=== PATIENT | female | born 1955 | race Caucasian/White ===

== ENCOUNTER 2023-05-03 10:19 | Outpatient (CLI) | payer MEDICARE, SELFPAY ==
[2023-05-03 10:51] LABS: Hematocrit 36.1 % (37.0-47.0); Hemoglobin 11.4 g/dL (12.0-15.0)
[2023-05-03 10:57] LABS: Anion Gap 11 mmol/L (8-16); Blood Urea Nitrogen 24 mg/dL (7-17); Calcium 9.1 mg/dL (8.4-10.2); Carbon Dioxide 27 mmol/L (22-30); Chloride 101 mmol/L (98-107); Estimated Glomerular Filt Rate 55; Glucose 89 mg/dL (65-110); Potassium 3.7 mmol/L (3.4-5.0); Sodium 139 mmol/L (137-145)
== END 2023-05-03 10:20 | disposition home or self-care (01) ==
PROVIDERS: Anesthesiology; PCP Family Medicine; Visit Provider Obstetrics & Gynecology
DX: N95.0 Postmenopausal bleeding (principal); Z79.899 Other long term (current) drug therapy; Z01.818 Encounter for other preprocedural examination
CPT/HCPCS: 36415; 80048; 85014; 85018

== ENCOUNTER 2023-05-06 04:01 | Day surgery (SDC) | payer MEDICARE, SELFPAY ==
[2023-04-26 14:39] VITALS: BMI 40.5
--- NOTE | 2023-04-26 14:51 | PC.NURSE ---
PRE-OP- INSTRUCTIONS, PLEASE READ CAREFULLY Report to the Outpatient Waiting Room, entrance under the green pavilion located off [facility], at time _0630_ on date _05/06/23_. Planned Procedure Time: _0830_. Time changes happen often and if your time is changed the preop area will call you the afternoon before. - You and your visitor will be asked to self-screen and do not enter if you have any COVID symptoms. - A mask is optional within the hospital at this time. Patients may have clear liquids (water, carbonated beverages, clear teas, apple juice) until 3 hours prior to surgery (0530 AM) with a maximum of 20 ounces. - No food from midnight until time of surgery Take the following medications with a SIP of water the morning of surgery: _AMLODIPINE, LEVOTHYROXINE_ DO NOT STOP ANY OF YOUR OTHER PRESCRIPTION MEDICATIONS PRIOR TO SURGERY ?EXCEPT THE FOLLOWING Medications to discontinue - _DICLOFENAC PER DR. CLINTON'S INSTRUCTIONS, Date to take last dose_CALL FOR INSTRUCTIONS_ Please no make-up, nail japanese, hairspray, perfume, deodorant, or body powder the day of surgery. No jewelry (including any body piercings) or valuables the day of surgery, leave them at home. Please take a shower or bath the night before, or the morning of, surgery with an antibacterial soap. Wear comfortable, loose fitting clothing. - Jewelry must be removed prior to entering the operating room. Rings and piercings that are not removed may be cut off. - The hospital will not accept responsibility for valuables. - Please leave all valuables, including medications, at home the day of surgery. If you are going home after surgery, a licensed lunch truck driver must drive you home. - NO public transportation without another adult if you receive anesthesia. - We recommend that an adult stay with you for 24 hours following discharge. - We also recommend that you do not drive, make important decision, drink alcoholic beverages, or take any drugs that were not prescribed by your health care provider for at least 24 hours after your discharge time. Follow any additional instructions given to you from your surgeon. If you or anyone in your household have experienced Covid symptoms in the past week, please notify your surgeon or the nurse liaison at the phone number below for possible testing. Telephone instructions given to _PATIENT_and asked if any additional questions and then verbalized understanding. Patient advised to call surgeon office or pre surgery nurse liaison [phone] if any additional questions.
--- NOTE | 2023-05-04 16:38 | PM.IMHP ---
H&P: HPI History of Present Illness Date/Time: 05/04/23 16:38 Chief Complaint: postmenopausal bleeding Narrative: this is a 67-year-old female 2 para 2 who was the been postmenopausal since 2007 who complains of 6 months vaginal bleeding. Apparently she had an ultrasound at [facility] and there was some thickened endometrium. Have been unable to find that result. For ever she did have a Pap smear she has had 1 for some time that I did which showed atypical splint glandular cells of undetermined significance. She is offered hysteroscopy dilatation and curettage. Risks and benefits reviewed including but not exclusive of , aspiration pneumonia, bleeding, transfusion, perforation injury to bowel, bladder, ureters, or other internal organs with need for open laparotomy. She received the ACOG handouts entitled hysteroscopy as well as dilatation curettage respectively. She had all questions answered. She asked to proceed [facility] Social History Social History Smoking status: Never smoker Second hand tobacco smoke exposure: No Alcohol intake: current Alcohol use details: MAYBE 1 DRINK EVERY 6 MONTHS Substance use: never Substance use type: does not use Living arrangements: with family Spiritual care concerns: No Meds Home Medications and Allergies Home Medications Medication Instructions Recorded Confirmed Type allopurinol 100 mg tablet 100 mg DAILY 04/26/23 04/26/23 History amlodipine 10 mg tablet 10 mg DAILY 04/26/23 04/26/23 History diclofenac sodium 75 mg 75 mg PO DAILY PRN Pain 04/26/23 04/26/23 History tablet,delayed release fexofenadine 180 mg tablet 180 mg PO DAILY PRN Congestion 04/26/23 04/26/23 History hydrochlorothiazide 25 mg tablet 25 mg DAILY 04/26/23 04/26/23 History levothyroxine 100 mcg tablet 100 mcg DAILY 04/26/23 04/26/23 History olmesartan 40 mg tablet 40 mg DAILY 04/26/23 04/26/23 History simvastatin 10 mg tablet 10 mg DAILY 04/26/23 04/26/23 History Allergies Allergy/AdvReac Type Severity Reaction Status Date / Time meloxicam AdvReac Nausea Verified 04/26/23 14:34 Penicillins AdvReac Hives Verified 04/26/23 14:34 Exam Const: General: cooperative, healthy appearing, comfortable and overweight Orientation/consciousness: oriented to person, oriented to place and oriented to time HENMT: Head: normal to inspection Resp: Effort & Inspection: normal respiratory effort Cardio: Rate: regular rate Rhythm: regular rhythm Heart sounds: S1 normal heart sound present and S2 normal heart sound present GI: Inspection: normal to inspection and obesity Percussion: Yes normal to percussion Auscultation: normal bowel sounds : External Female Exam: normal external appearance Speculum Exam - Vagina: normal appearance of the vagina Speculum Exam - Cervix: normal appearance of the cervix Bimanual exam- vagina & uterus: enlarged Bimanual Exam- Adnexa, other: normal adnexae Assessment and Plan Assessment and plan (1) Postmenopausal bleeding: Code(s): N95.0 - Postmenopausal bleeding Status: Acute Plan hysteroscopy/ dilatation and curettage
--- NOTE | 2023-05-05 14:40 | WPDANESEPPF ---
Anes - Initial Pre Proc Eval Procedure: Operation Date: 05/06/23 08:30 Proposed Procedures p Hysteroscopy Dilation and Curettage - Troy Anderson MD Date/Time: 05/05/23 14:40 Surgeon: Troy Anderson MD Pre Op Diagnosis: post menopausal bleeding Patient Data Age: 67 Gender: F Height: 1.65 m Weight: 110.45 kg Allergies Allergy/AdvReac Type Severity Reaction Status Date / Time Penicillins Allergy Severe Hives Verified 05/06/23 07:03 meloxicam AdvReac Mild Nausea Verified 05/06/23 07:03 Home Medications Medication Instructions Recorded Confirmed Type allopurinol 100 mg tablet 100 mg DAILY 04/26/23 05/06/23 History amlodipine 10 mg tablet 10 mg DAILY 04/26/23 05/06/23 History diclofenac sodium 75 mg 75 mg PO DAILY PRN Pain 04/26/23 04/26/23 History tablet,delayed release fexofenadine 180 mg tablet 180 mg PO DAILY PRN Congestion 04/26/23 05/06/23 History hydrochlorothiazide 25 mg tablet 25 mg DAILY 04/26/23 05/06/23 History levothyroxine 100 mcg tablet 100 mcg DAILY 04/26/23 05/06/23 History olmesartan 40 mg tablet 40 mg DAILY 04/26/23 05/06/23 History simvastatin 10 mg tablet 10 mg DAILY 04/26/23 05/06/23 History hydrocodone 5 mg-acetaminophen 325 1 tablet PO Q4H PRN pain #10 tabs 05/06/23 Rx mg tablet Patient hx anesthesia problems: none Family hx anesthesia problems: none Results Review: All pre-operative results and documents have been reviewed as part of the pre-operative evaluation. [facility] Past Medical History Medical History (Updated 05/05/23 @ 14:42 by Russ Lin DO) Chronic back pain Hyperlipidemia Hypertension Hypothyroidism Surgical History Surgical History (Updated 05/05/23 @ 14:42 by Russ Lin DO) History of bilateral knee replacement Social History Social History Smoking status: Never smoker Second hand tobacco smoke exposure: No Alcohol intake: current Alcohol use details: MAYBE 1 DRINK EVERY 6 MONTHS Substance use: never Substance use type: does not use Living arrangements: with family Spiritual care concerns: No Anes - Eval Final PreProcedure Day of Procedure 05/05/23 14:40 Patient weight: morbidly obese Heart: regular rate and rhythm Lungs: clear to auscultation Airway: Mallampati scale class II Neurological: alert and oriented Last oral intake: >/= 8 hours ASA classification: III Emergent: no Anesthetic plan: proceed Anesthesia type and monitoring: general GIVS and standard monitoring Results Review: All pre-operative results and documents have been reviewed as part of the pre-operative evaluation. Informed Consent: The patient's anesthetic plan and its attendant risks and benefits were discussed with the patient/family/POA. Questions were solicited and answers provided to the satisfaction of the patient/family/POA.
--- NOTE | 2023-05-06 06:38 | WPDHPUPDATE1 ---
History and Physical Update Update Date/Time: 05/06/23 06:38 History and Physical has been reviewed, including an updated exam of the patient. There are NO changes in the patient's condition. Risks, benefits, and alternatives have been discussed and questions answered. Patient agrees to proceed with procedure.
[2023-05-06 07:03] VITALS: BP 150/57; PULSE 65; RESP 20; TEMP 36.6; O2SAT 98
[2023-05-06] MEDS: ACETAMINOPHEN 500 MG TABLET 1000 MG PO (07:09)
[2023-05-06] MEDS: LACTATED RINGERS 1,000 ML 30 ML IV CONT (07:10)
[2023-05-06] MEDS: LIDOCAINE HCL 1% LOCAL INJ 10 ML VIAL INFILTRATE (08:52)
--- NOTE | 2023-05-06 09:05 | W.PM.PROC2 ---
Procedure Note - Detailed Date of Procedure 05/06/23 Pre-op Diagnosis post menopausal bleeding Post-op Diagnosis Same Procedure Performed Hysteroscopy/polypectomy/dilatation curettage Surgeon Troy Anderson MD Anesthesia MAC and Local Indications A 67-year-old female postmenopausal bleeding and atypical glandular cells of undetermined significance on Pap Findings Thickened irregular polypoid tissue the low consistent with endometrial adenocarcinoma Description of Procedure Patient was prepped draped in normal sterile fashion placed in dorsal lithotomy position. Under excellent IV sedation weighted speculum placed in posterior fornix vagina. Anterior lip of cervix grasped with single-tooth tenaculum. 2.5cc of 1% xylocaine anesthesia placed at 2, 4, 8, 10:00 a.m. of the cervix. Uterus was sounded to 8cm. Serial dilatation with fragmented dilators performed followed by passage of the the Pt hysteroscope using normal saline as visualizing medium. Irregular endometrial tissue and polypoid fashion was noted. The polyp forceps was passed pieces were taken. Uterus scraped over the entire 360? until good grating sound was heard. The instruments were withdrawn. The patient went to recovery in satisfactory condition. All sponge, needle, instrument counts were correct. There were no immediate complications Estimated Blood Loss 5 Drains No Packing No Pathology Yes Complications No immediate complications Condition Stable Disposition PACU
[2023-05-06 09:15] VITALS: BP 114/81; PULSE 61; RESP 14; O2SAT 95
[2023-05-06 10:00] VITALS: BP 147/58; PULSE 46; RESP 16
[2023-05-06] MEDS: oxyCODONE HCL (*CRX) 5 MG TAB IR PO (10:12)
== END 2023-05-06 10:48 | disposition home or self-care (01) ==
PROVIDERS: PCP Family Medicine; Visit Provider Obstetrics & Gynecology
PROC: 0U5B8ZZ Destruction of Endometrium, Via Natural or Artificial Opening Endoscopic (ICD-10-PCS; CPT 58563; principal; 2023-05-06 08:30)
DX: N85.02 Endometrial intraepithelial neoplasia [EIN] (principal); N95.0 Postmenopausal bleeding; I10 Essential (primary) hypertension; E78.5 Hyperlipidemia, unspecified; E03.9 Hypothyroidism, unspecified; M54.9 Dorsalgia, unspecified; G89.29 Other chronic pain; Z79.891 Long term (current) use of opiate analgesic; E66.01 Morbid (severe) obesity due to excess calories; Z68.41 Body mass index [BMI] 40.0-44.9, adult
CPT/HCPCS: 58558; 36415; 80048; 85014; 85018; 88305; 88342; A9270; J1100; J2250; J2405; J2704; J3010; J7120

== ENCOUNTER 2023-05-24 13:05 | Outpatient (CLI) | payer MEDICARE, SELFPAY ==
--- NOTE | 2023-05-24 13:14 | ECG_ITS ---
Measurements Intervals [place] Rate: 71 P: 55 WI: 195 QRS: 12 QRSD: 81 T: 26 QT: 383 QTc: 419 Interpretive Statements SINUS RHYTHM LOW QRS VOLTAGE IN PRECORDIAL LEADS ANTEROSEPTAL INFARCT, AGE INDETERMINATE BASELINE ARTIFACT- I, II, III, AVR, AVL, AVF ABNORMAL ECG NO PREVIOUS ECG AVAILABLE FOR COMPARISON Electronically Signed On 05-24-2023 14:26:25 CDT by Tres Coburn D.O.
[2023-05-24 13:51] LABS: Basophils Percent Auto 0.3 % (0.2-1.2); Eosinophils Absolute Auto 0.2 K/mm3 (0-0.3); Eosinophils Percent Auto 3.7 % (0-4.4); Hematocrit 33.5 % (37.0-47.0); Hemoglobin 10.9 g/dL (12.0-15.0); Immature Granulocyte Absolute 0.01 K/mm3 (0.00-0.031); Immature Granulocyte Percent A 0.2 % (0-0.5); Lymphocytes Absolute Auto 0.76 K/mm3 (0.9-3.2); Lymphocytes Percent Auto 12.7 % (18.3-44.2); Mean Corpuscular HGB Conc 32.5 g/dl (32-36); Mean Corpuscular Hemoglobin 28.9 pg (26-34); Mean Corpuscular Volume 88.9 fl (80-100); Mean Platelet Volume 10.6 fl (7.4-10.4); Monocytes Absolute Auto 0.4 K/mm3 (0.1-0.6); Monocytes Percent Auto 6.8 % (2.6-8.5); Neutrophils Absolute Auto 4.6 K/mm3 (1.3-6.7); Neutrophils Percent Auto 76.3 % (45.5-73.1); Platelet Count Result 187 k/mm3 (150-375); Red Blood Count 3.77 M/mm3 (4.2-5.4); Red Cell Distribution Width 12.6 % (11.5-14.5)
== END 2023-05-24 13:06 | disposition home or self-care (01) ==
LOC: ANHSURGERY 13:09
PROVIDERS: PCP Family Medicine; Visit Provider Obstetrics & Gynecology
DX: N95.0 Postmenopausal bleeding (principal); I10 Essential (primary) hypertension; Z01.818 Encounter for other preprocedural examination
CPT/HCPCS: 36415; 85025; 86850; 86900; 86901; 93005

== ENCOUNTER 2023-05-26 00:49 | Day surgery (SDC) | payer MEDICARE, SELFPAY ==
[2023-05-20 11:19] VITALS: BMI 39.9
--- NOTE | 2023-05-20 11:33 | PC.NURSE ---
PRE-OP INSTRUCTIONS, PLEASE READ CAREFULLY Report to the Outpatient Waiting Room, entrance under the green pavilion located off [facility], at time _1200_ on date _05/26/23_. Planned Procedure Time: _2 PM_. PACK A SMALL OVERNIGHT BAG AND LEAVE IN THE CAR Time changes happen often and if your time is changed the preop area will call you the afternoon before. - You and your visitor will be asked to self-screen and do not enter if you have any COVID symptoms. - A mask is optional within the hospital at this time. -VISITING HOURS 8AM-8PM Patients may have clear liquids (water, carbonated beverages, clear teas, apple juice) until 3 hours prior to surgery (1100 AM) with a maximum of 20 ounces. - No food from midnight until time of surgery Take the following medications with a SIP of water the morning of surgery: _AMLODIPINE, LEVOTHYROXINE_ DO NOT STOP ANY OF YOUR OTHER PRESCRIPTION MEDICATIONS PRIOR TO SURGERY ?EXCEPT THE FOLLOWING Medications to discontinue _DICLOFENAC PER DR. AUDELIA KLEIN'S INSTRUCTIONS_, Date to take last dose Please no make-up, nail albanian, hairspray, perfume, deodorant, or body powder the day of surgery. No jewelry (including any body piercings) or valuables the day of surgery, leave them at home. Please take a shower or bath the night before, or the morning of, surgery with an antibacterial soap. Wear comfortable, loose fitting clothing. - Jewelry must be removed prior to entering the operating room. Rings and piercings that are not removed may be cut off. - The hospital will not accept responsibility for valuables. - Please leave all valuables, including medications, at home the day of surgery. If you are going home after surgery, a licensed bulk delivery driver must drive you home. - NO public transportation without another adult if you receive anesthesia. - We recommend that an adult stay with you for 24 hours following discharge. - We also recommend that you do not drive, make important decision, drink alcoholic beverages, or take any drugs that were not prescribed by your health care provider for at least 24 hours after your discharge time. Follow any additional instructions given to you from your surgeon. If you or anyone in your household have experienced Covid symptoms in the past week, please notify your surgeon or the nurse liaison at the phone number below for possible testing. Telephone instructions given to _PATIENT_and asked if any additional questions and then verbalized understanding. Patient advised to call surgeon office or pre surgery nurse liaison [phone] if any additional questions.
--- NOTE | 2023-05-23 11:31 | PM.IMHP ---
H&P: HPI History of Present Illness Date/Time: 05/23/23 11:31 Chief Complaint: Postmenopausal bleeding with atypical hyperplasia Narrative: A 67-year-old female admitted for robotic total vaginal hysterectomy and bilateral salpingo-oophorectomy secondary to atypical endometrial hyperplasia. Risks and benefits reviewed in full details. She had all questions answered. She received the ACOG handouts entitled hysterectomy as well as the [place] handout. She asked to proceed [facility] Past Medical History Medical History Chronic back pain Hyperlipidemia Hypertension Hypothyroidism Surgical History Surgical History History of bilateral knee replacement Social History Social History Smoking status: Never smoker Second hand tobacco smoke exposure: Yes Alcohol intake: current Alcohol use details: MAYBE 1 EVERY 6 MONTHS Substance use: never Substance use type: does not use Living arrangements: with family Spiritual care concerns: No Meds Home Medications and Allergies Home Medications Medication Instructions Recorded Confirmed Type allopurinol 100 mg tablet 100 mg DAILY 04/26/23 05/20/23 History amlodipine 10 mg tablet 10 mg DAILY 04/26/23 05/20/23 History diclofenac sodium 75 mg 75 mg PO DAILY PRN Pain 04/26/23 05/20/23 History tablet,delayed release fexofenadine 180 mg tablet 180 mg PO DAILY PRN Congestion 04/26/23 05/20/23 History hydrochlorothiazide 25 mg tablet 25 mg DAILY 04/26/23 05/20/23 History levothyroxine 100 mcg tablet 100 mcg DAILY 04/26/23 05/20/23 History olmesartan 40 mg tablet 40 mg DAILY 04/26/23 05/20/23 History simvastatin 10 mg tablet 10 mg DAILY 04/26/23 05/20/23 History Allergies Allergy/AdvReac Type Severity Reaction Status Date / Time Penicillins Allergy Severe Hives Verified 05/20/23 11:19 meloxicam AdvReac Mild Nausea Verified 05/20/23 11:19 Exam Const: General: cooperative, healthy appearing and comfortable Nutritional Appearance: overweight Orientation/consciousness: oriented to person, oriented to place and oriented to time HENMT: Head: normal to inspection Resp: Effort & Inspection: normal respiratory effort Cardio: Rate: regular rate Rhythm: regular rhythm Heart sounds: S1 normal heart sound present and S2 normal heart sound present GI: Inspection: normal to inspection : Speculum Exam - Vagina: normal appearance of the vagina Speculum Exam - Cervix: normal appearance of the cervix Bimanual exam- vagina & uterus: enlarged Bimanual Exam- Adnexa, other: normal adnexae Assessment and Plan Assessment and plan (1) Postmenopausal bleeding: Code(s): N95.0 - Postmenopausal bleeding Status: Acute (2) Atypical endometrial hyperplasia: Code(s): N85.02 - Endometrial intraepithelial neoplasia [EIN] Status: Acute Plan Robotic total vaginal hysterectomy and bilateral salpingo-oophorectomy
[2023-05-26] VITALS (10 sets, daily range): BP systolic 124–158; BP diastolic 54–76; PULSE 53–73; RESP 12–18; TEMP 36.1–36.7; O2SAT 91–97
--- NOTE | 2023-05-26 06:37 | WPDHPUPDATE1 ---
History and Physical Update Update Date/Time: 05/26/23 06:37 History and Physical has been reviewed, including an updated exam of the patient. There are NO changes in the patient's condition. Risks, benefits, and alternatives have been discussed and questions answered. Patient agrees to proceed with procedure.
[2023-05-26] MEDS: LACTATED RINGERS 1,000 ML 30 ML IV CONT ×2 (12:24→15:44)
[2023-05-26] MEDS: ACETAMINOPHEN 500 MG TABLET 1000 MG PO (12:25)
[2023-05-26] MEDS: KETOROLAC 15 MG/ML VIAL (*BKC) IV PUSH (12:25)
--- NOTE | 2023-05-26 12:46 | WPDANESEPPF ---
Anes - Initial Pre Proc Eval Procedure: Operation Date: 05/26/23 14:00 Proposed Procedures p Robotic Assisted Total Vaginal Hysterectomy with Bilateral Salpingo-oophorectomy - Troy Anderson MD Date/Time: 05/26/23 12:46 Surgeon: Troy Anderson MD Pre Op Diagnosis: Post Menopausal Bleed, Endometrial Hyperplasia Patient Data Age: 67 Gender: F Height: 1.65 m Weight: 109 kg Allergies Allergy/AdvReac Type Severity Reaction Status Date / Time Penicillins Allergy Severe Hives Verified 05/20/23 11:19 meloxicam AdvReac Mild Nausea Verified 05/20/23 11:19 Home Medications Medication Instructions Recorded Confirmed Type allopurinol 100 mg tablet 100 mg DAILY 04/26/23 05/20/23 History amlodipine 10 mg tablet 10 mg DAILY 04/26/23 05/20/23 History diclofenac sodium 75 mg 75 mg PO DAILY PRN Pain 04/26/23 05/20/23 History tablet,delayed release fexofenadine 180 mg tablet 180 mg PO DAILY PRN Congestion 04/26/23 05/20/23 History hydrochlorothiazide 25 mg tablet 25 mg DAILY 04/26/23 05/20/23 History levothyroxine 100 mcg tablet 100 mcg DAILY 04/26/23 05/20/23 History olmesartan 40 mg tablet 40 mg DAILY 04/26/23 05/20/23 History simvastatin 10 mg tablet 10 mg DAILY 04/26/23 05/20/23 History hydrocodone 5 mg-acetaminophen 325 1 tablet PO Q4H PRN pain #20 tabs 05/26/23 Rx mg tablet Patient hx anesthesia problems: none Family hx anesthesia problems: none Results Review: All pre-operative results and documents have been reviewed as part of the pre-operative evaluation. [facility] Past Medical History Medical History (Updated 05/26/23 @ 12:47 by Troy Cabezas MD) Chronic back pain Hyperlipidemia Hypertension Hypothyroidism Morbid obesity Surgical History Surgical History History of bilateral knee replacement Social History Social History Smoking status: Never smoker Second hand tobacco smoke exposure: Yes Alcohol intake: current Alcohol use details: MAYBE 1 EVERY 6 MONTHS Substance use: never Substance use type: does not use Living arrangements: with family Spiritual care concerns: No Anes - Eval Final PreProcedure Day of Procedure 05/26/23 12:46 Patient weight: morbidly obese Heart: regular rate and rhythm Lungs: clear to auscultation Airway: Mallampati scale class II Neurological: alert and oriented Last oral intake: >/= 8 hours ASA classification: III Emergent: no Anesthetic plan: proceed Anesthesia type and monitoring: general ETT and standard monitoring Results Review: All pre-operative results and documents have been reviewed as part of the pre-operative evaluation. Informed Consent: The patient's anesthetic plan and its attendant risks and benefits were discussed with the patient/family/POA. Questions were solicited and answers provided to the satisfaction of the patient/family/POA.
[2023-05-26] MEDS: ceFAZolin 2 GM/D5W 50 ML 2 GM/50 ML BAG IVPB (13:48)
--- NOTE | 2023-05-26 15:04 | W.PM.PROC2 ---
Procedure Note - Detailed Date of Procedure 05/26/23 Pre-op Diagnosis Post Menopausal Bleed, Endometrial Hyperplasia Post-op Diagnosis Other (Suspected endometrial cancer) Procedure Performed Robotic total vaginal hysterectomy bilateral salpingo-oophorectomy Surgeon Troy Anderson MD Anesthesia General Indications Say 67-year-old female with complex atypical hyperplasia D and C specimen Findings Multiple diverticuli were seen with the colon attached to the back of the uterus. After releasing the adhesions a exophytic cancer appeared to be present through the uterus. Because it was difficult bleeding present on the uterus did not look like it could be controlled we proceeded with hysterectomy. Description of Procedure Patient was prepped draped in normal sterile fashion placed in dorsal lithotomy position. Under excellent general trach anesthesia weighted speculum placed posterior vagina. Anterior lip of cervix grasped with single-tooth tenaculum. Uterus sounded to 9cm. Serial dilatation with fragmented dilators performed followed passes the 8. TARYN and the 3. 0.5 cold cup. Next the 16 [place] catheter placed in bladder drained clear urine. The weighted speculum was removed and gloves were changed. A supraumbilical incision made the Veress needle passed in the abdomen. Abdomen filled with CO2 gas 15 was mercury. The 8mm trocar advanced under direct visualization assuring injury. Patient placed in Trendelenburg and right left lateral quadrant incisions 8mm trocars advanced under direct visualization right upper quadrant incision made the 8mm trocar advanced under direct visualization assuring injury injury. The robot was docked. Attention was turned to community health counselor. The colon was noted to be markedly adherent to the back of the uterus and multiple diverticuli were seen. Using gentle dissection this was peeled off. At the point that it peeled off easily the uterus began bleeding. It appeared at that point that this was an exophytic cancer through and through the uterus however the bleeding was actively occurring on uterus. At that point was not felt safe to abandon the procedure so we proceeded with the hysterectomy portion. The left round ligament was grasped, burned, cut and anterior bladder flap was formed sharply dissected across the anterior portion of the uterus and cervix reflecting bladder caudally the away from the uterus and cervix to the opposite round ligament. The left infundibulopelvic structure was skeletonized remove the left ovary and tube clamped, burned, cut and brought to level of the previously cut round ligament. Removing right ovary and tube the infundibulopelvic structure was skeletonized clamping burning cutting a brain this level of previously cut round ligament. The cardinal broad ligaments were on the left were clamped, burned, cut again cervix and uterus until the uterine vessels could be seen on the left these were individually clamped, burned, cut. In like fashion the cardinal broad ligaments were serially skeletonized clamping burning cutting down the lateral edge of the uterus and cervix which repeat 4 free of any tumors well. The uterine cancer in the uterine vessels were noted were clamped, burned, cut. Blanching of the uterus was noted at that point. The colpotomy incision was made in the cervix uterus ovaries and tubes removed through the vagina. Irrigation undertaken until completely clear and hemostasis was assured the vagina closed with continuous running 0V lock from lateral edge to lateral edge back to midline. Hearing irrigation undertaken again until clear and hemostasis was assured the robot was undocked gas removed from the abdomen. The incisions closed with 4 Monocryl and glue after gas was removed trocars removed. Patient was awakened recovery in satisfactory condition. All sponge, needle, instrument counts were correct. There were no immediate complications Estimated Blood Loss 50 Drains
[2023-05-26] MEDS: ONDANSETRON INJ 4 MG/2 ML VIAL IV PUSH (16:07)
[2023-05-26] MEDS: fentaNYL CITRATE INJ (*CRX) 100 MCG/2 ML VIAL 25 MCG IV PUSH ×2 (16:14→16:17)
--- NOTE | 2023-05-26 16:32 | SUR.PHASEI ---
Dr. Dinora Anderson pagejamie for decreased urine output.
[2023-05-26] MEDS: FUROSEMIDE INJ 40 MG/4 ML VIAL 20 MG IV PUSH (16:45)
[2023-05-26] MEDS: SODIUM CHLORIDE 0.9% IV 500 ML 999 ML IV CONT (16:50)
[2023-05-26] MEDS: KETOROLAC 30 MG/ML VIAL (*BKC) IV PUSH (18:02)
[2023-05-26] MEDS: DEXTROSE 5%/LACTATED RINGERS 1,000 ML 125 ML IV CONT (18:02)
--- NOTE | 2023-05-26 18:39 | ADMGEN ---
1723-This patient, Madai Bolivar, was admitted to OB 2nd Floor Room 284-00. Patient/family oriented to hospital policies and general routines including ID bracelet, bed and alarms, visiting hours, pain management, procedures, bathroom and other care routines, personal items, smoking policy, room service/diet, and visiting hours. Information on how to activate the Rapid Response Team has been discussed. Patient/Family are encouraged to report perceived risks to care and to ask questions if they do not understand what they are told or what they should do.
[2023-05-26] MEDS: HYDROcodone/acetaminophen (*CRX) 5-325 MG TABLET 1 TAB PO (20:25)
[2023-05-26] MEDS: SCOPOLAMINE 1.5 MG PATCH TRANSDERM (20:25)
[2023-05-27 04:45] VITALS: BP 159/72; PULSE 64; RESP 16; TEMP 37.5; O2SAT 96
[2023-05-27] MEDS: HYDROcodone/acetaminophen (*CRX) 5-325 MG TABLET 1 TAB PO (05:12)
[2023-05-27] MEDS: IBUPROFEN 600 MG TABLET PO (05:12)
[2023-05-27 05:15] LABS: Hematocrit 32.2 % (37.0-47.0); Hemoglobin 10.5 g/dL (12.0-15.0); Immature Granulocyte Absolute 0.03 K/mm3 (0.00-0.031); Immature Granulocyte Percent A 0.3 % (0-0.5); Lymphocytes Absolute Auto 0.41 K/mm3 (0.9-3.2); Lymphocytes Percent Auto 4.1 % (18.3-44.2); Mean Corpuscular HGB Conc 32.6 g/dl (32-36); Mean Corpuscular Hemoglobin 29.1 pg (26-34); Mean Corpuscular Volume 89.2 fl (80-100); Mean Platelet Volume 10.4 fl (7.4-10.4); Monocytes Absolute Auto 0.4 K/mm3 (0.1-0.6); Monocytes Percent Auto 3.8 % (2.6-8.5); Neutrophils Absolute Auto 9.2 K/mm3 (1.3-6.7); Neutrophils Percent Auto 91.8 % (45.5-73.1); Platelet Count Result 191 k/mm3 (150-375); Red Blood Count 3.61 M/mm3 (4.2-5.4); Red Cell Distribution Width 12.7 % (11.5-14.5)
--- NOTE | 2023-05-27 06:36 | P.DS_ITS ---
DS: Admitting Diagnosis Discharge Date 05/27/2023 Admitting Diagnosis endometrial hyperplasia DS: Discharge Diagnosis Discharge Diagnosis (1) Postmenopausal bleeding: Code(s): N95.0 - Postmenopausal bleeding Status: Acute (2) Uterine cancer: Code(s): C55 - Malignant neoplasm of uterus, part unspecified Status: Acute DS: Summary Hospital Course Reason for hospitalization: patient was admitted for robotic hysterectomy and bilateral salpingo- oophorectomy secondary to atypical endometrial hyperplasia Hospital Course: patient underwent hysterectomy bilateral salpingo-oophorectomy robotically on 05/27/2023. Unfortunately it appeared that it was a endometrial cancer. The procedure itself was unremarkable. She remained afebrile. She was up, eating regular diet, ambulating, voiding difficulty, generally without complaints. Time Spent with Patient Time attestation: Total time spent providing and/or coordinating discharge services: Exam Const: General: cooperative, healthy appearing and comfortable Orientation/consciousness: oriented to person, oriented to place and oriented to time Resp: Effort & Inspection: normal respiratory effort Cardio: Rate: regular rate Rhythm: regular rhythm Heart sounds: S1 normal heart sound present and S2 normal heart sound present GI: Inspection: normal to inspection and incision ( Wounds are clean dry and intact) Auscultation: normal bowel sounds DS: Data Data Completed and Pending Pending studies at discharge: Pending at discharge 05/26/23 14:50 Surgical [PTH] Routine Labs on day of discharge: Labs from last 24 hours 05/27/23 04:53 WBC 10.0 RBC 3.61 L Hgb 10.5 L Hct 32.2 L MCV 89.2 MCH 29.1 MCHC 32.6 RDW 12.7 Plt Count 191 MPV 10.4 Immature Gran % (Auto) 0.3 Neut % (Auto) 91.8 H Lymph % (Auto) 4.1 L [place] % (Auto) 3.8 Eos % (Auto) 0.0 Baso % (Auto) 0.0 L Lymph # (Auto) 0.41 L [place] # (Auto) 0.4 Eos # (Auto) 0.0 Baso # (Auto) 0.0 Abs Immat Gran (auto) 0.03 Absolute Neuts (auto) 9.2 H Absolute Nucleated RBC 0.0 Nucleated RBC % 0.0 Discharge Plan Discharge Patient Disposition: Home, Self-Care Stand Alone Forms: General Discharge Instructions Follow-up/Referrals: Troy Francois MD [Physician] - Discharge Medications: New hydrocodone-acetaminophen 5-325 mg tablet 1 tablet PO Q4H PRN (Reason: pain) Qty: 20 0RF No Action simvastatin 10 mg tablet 10 mg DAILY fexofenadine 180 mg Tablet 180 mg PO DAILY PRN (Reason: Congestion) allopurinol 100 mg tablet 100 mg DAILY levothyroxine 100 mcg tablet 100 mcg DAILY amlodipine 10 mg tablet 10 mg DAILY diclofenac sodium 75 mg tablet,delayed release (DR/EC) 75 mg PO DAILY PRN (Reason: Pain) hydrochlorothiazide 25 mg tablet 25 mg DAILY olmesartan 40 mg tablet 40 mg DAILY
--- NOTE | 2023-05-27 06:39 | PM.GYNPNOP ---
THERMAL ENGINEER - A/P Postoperative Procedures: Procedures Operation Date: 05/26/23 14:00 Actual Procedure Side Surgeon p Robotic Assisted Total Vaginal Hysterectomy with Bilateral Salpingo-oophorectomy Bilateral Troy Anderson MD Postoperative day: 1 Postoperative status: doing well Postoperative plan: routine post-op care, ambulate, advance diet, voiding trials and discharge Time Spent With Patient Time: Total time spent is greater than 50% in coordination of care (as documented) at patient's floor/unit and/or counseling patient: Time with patient: less than 15 minutes THERMAL ENGINEER- PN:Subj Post-Op Subjective Date/time seen: 05/27/23 06:39 Subjective: patient has no complaints, patient desires discharge and pain is well controlled Exam Const: General: cooperative, healthy appearing and comfortable Orientation/consciousness: oriented to person, oriented to place and oriented to time Resp: Effort & Inspection: normal respiratory effort Cardio: Rate: regular rate Rhythm: regular rhythm Heart sounds: S1 normal heart sound present and S2 normal heart sound present GI: Inspection: normal to inspection and incision ( wounds are clean dry and intact) THERMAL ENGINEER - PN: Obj Data Vital Signs Vital Signs: Vital Signs - 24 hr 05/26/23 15:28 05/26/23 15:40 05/26/23 15:55 Temperature 97.0 F L Pulse Rate 53 L 60 64 Respiratory Rate 12 15 18 Blood Pressure 124/56 L 132/60 143/71 H Pulse Oximetry 93 94 96 Oxygen Delivery Simple Face Mask Simple Face Mask Simple Face Mask Oxygen Flow Rate 6 8 8 05/26/23 16:10 05/26/23 16:25 05/26/23 16:40 Temperature Pulse Rate 56 L 53 L 55 L Respiratory Rate 17 12 15 Blood Pressure 151/54 H 137/62 150/61 H Pulse Oximetry 92 91 94 Oxygen Delivery Nasal Cannula Nasal Cannula Nasal Cannula Oxygen Flow Rate 3 4 4 05/26/23 16:55 05/26/23 17:10 05/26/23 17:30 Temperature 97.9 F Pulse Rate 63 62 72 Respiratory Rate 13 13 18 Blood Pressure 157/67 H 154/54 H Pulse Oximetry 94 94 95 Oxygen Delivery Nasal Cannula Nasal Cannula Nasal Cannula Oxygen Flow Rate 4 4 4 05/26/23 17:30 05/26/23 20:20 05/27/23 04:45 Temperature 98.0 F 97.2 F L 99.5 F Pulse Rate 72 73 64 Respiratory Rate 18 16 16 Blood Pressure 158/76 H 141/63 H 159/72 H Pulse Oximetry 95 97 96 Oxygen Delivery Oxygen Flow Rate Intake/Output Intake/Output: Intake & Output 05/24/23 05/25/23 05/26/23 05/27/23 23:59 23:59 23:59 23:59 Intake Total 1450 500 Output Total 980 300 Balance 470 200 Meds/Results Medications: Active Medications Generic Name Dose Route Start Last Admin Trade Name Freq PRN Reason Stop Dose Admin Hydrocodone Bitart/Acetaminophen 1 tab 05/26/23 17:17 05/27/23 05:12 Hydrocodone/Acetaminophen (*Crx) 5-325 Mg Tablet PO 1 tab Q3H PRN Administration Pain Rated 5 or Less Hydrocodone Bitart/Acetaminophen 1 tab 05/26/23 17:17 Hydrocodone/Acetaminophen (*Crx) 10-325 Mg Tablet PO Q3H PRN Pain Rated 6 or Greater Docusate Sodium 100 mg 05/26/23 17:17 05/26/23 17:53 Docusate Sodium 100 Mg Capsule PO Not Given BID [facility] Enoxaparin Sodium 40 mg 05/27/23 09:00 Enoxaparin 40 Mg/0.4 Ml Syringe SUB-Q DAILY [facility] Ibuprofen 600 mg 05/26/23 17:17 05/27/23 05:12 Ibuprofen 600 Mg Tablet PO 600 mg Q6H PRN Administration Cramping Ketorolac Tromethamine 30 mg 05/26/23 17:17 05/26/23 18:02 Ketorolac 30 Mg/Ml Vial (*Bkc) IV PUSH 05/31/23 17:16 30 mg Q6H PRN Administration Pain Rated 4-6 Naloxone HCl 0.1 mg 05/26/23 17:17 Naloxone Hcl 0.4 Mg/Ml Vial IV PUSH Q2M PRN Respiratory rate less than 10 Ondansetron HCl 4 mg 05/26/23 17:17 Ondansetron Inj 4 Mg/2 Ml Vial IV PUSH Q6H PRN Nausea And Vomiting Simethicone 80 mg 05/26/23 17:17 Simethicone 80 Mg Tab.Chew PO Q2H PRN Gas Labs 05/27/23 04:53 Labs: Laboratory Results - last 24 hr 05/27/23 04
--- NOTE | 2023-05-27 07:27 | P.PNAN_ITS ---
Anes - Prog Note Post-Op Date/Time: 05/27/23 07:27 Cardiovascular status: normal Respiratory status: normal Airway patency: baseline Mental status: baseline Post-Op hydration status: normal Vital Signs: Last Vital Signs Temp 37.5 C 05/27/23 04:45 Pulse 64 05/27/23 04:45 Resp 16 05/27/23 04:45 BP 159/72 H 05/27/23 04:45 Pulse Ox 96 05/27/23 04:45 O2 Del Method Nasal Cannula 05/26/23 17:30 O2 Flow Rate 4 05/26/23 17:30 Pain Score (VAS): 10/08 I/O: Intake & Output 05/26/23 05/26/23 05/27/23 15:59 23:59 07:59 Intake Total 50 1400 500 Output Total 980 300 Balance 50 420 200 Laboratory Tests 05/27/23 04:53 05/27/23 04:53 WBC 10.0 RBC 3.61 L Hgb 10.5 L Hct 32.2 L MCV 89.2 MCH 29.1 MCHC 32.6 RDW 12.7 Plt Count 191 MPV 10.4 Immature Gran % (Auto) 0.3 Neut % (Auto) 91.8 H Lymph % (Auto) 4.1 L [place] % (Auto) 3.8 Eos % (Auto) 0.0 Baso % (Auto) 0.0 L Lymph # (Auto) 0.41 L [place] # (Auto) 0.4 Eos # (Auto) 0.0 Baso # (Auto) 0.0 Abs Immat Gran (auto) 0.03 Absolute Neuts (auto) 9.2 H Absolute Nucleated RBC 0.0 Nucleated RBC % 0.0 Post-procedural complaints: nausea (moderate, controlled by meds) Patient Feedback: Patient satisfied with anesthetic care.
[2023-05-27 08:15] VITALS: BP 135/53; PULSE 67; RESP 18; TEMP 37.1; O2SAT 96
[2023-05-27] MEDS: ENOXAPARIN 40 MG/0.4 ML SYRINGE SUB-Q (09:43)
== END 2023-05-27 10:35 | disposition home or self-care (01) ==
LOC: ANHSURGERY 11:46 → ANHOB2 17:19
PROVIDERS: PCP Family Medicine; Visit Provider Obstetrics & Gynecology
PROC: (CPT 58552; principal; 2023-05-26 14:00)
DX: C54.1 Malignant neoplasm of endometrium (principal); C56.1 Malignant neoplasm of right ovary; C57.02 Malignant neoplasm of left fallopian tube; C57.01 Malignant neoplasm of right fallopian tube; N95.0 Postmenopausal bleeding; I10 Essential (primary) hypertension; E78.5 Hyperlipidemia, unspecified; E03.9 Hypothyroidism, unspecified; G89.29 Other chronic pain; M54.9 Dorsalgia, unspecified; E66.01 Morbid (severe) obesity due to excess calories; Z68.41 Body mass index [BMI] 40.0-44.9, adult; Z79.891 Long term (current) use of opiate analgesic
CPT/HCPCS: 58552; S2900; 36415; 85025; 86850; 86900; 86901; 88307; 93005; 99199; A9270; J0330; J0690; J1100; J1170; J1650; J1885; J1940; J2250; J2405; J2704; J3010; J7030; J7040; J7120; J7121

== ENCOUNTER 2023-06-14 07:17 | Outpatient (CLI) | payer MEDICARE, SELFPAY ==
--- NOTE | ~2023-06-14 | CT_ITS ---
CT of the Abdomen and Pelvis: Indication: Endometrial carcinoma Technique: 2.5 mm axial scans were obtained through the abdomen and pelvis following intravenous adm inistration of 100 cc of Omnipaque 350. Dose reduction technique was used on this scan by utilizing a utomated exposure control and iterative reconstruction technique. The dose-length product (DLP) was 1 205.20 mGy-cm. Findings: Scans through the lung bases demonstrate multiple subcentimeter pulmonary nodules, largest measuring approximately 8 mm in diameter.. Mild central intrahepatic biliary dilatation may be related to prior cholecystectomy. Right hepatic l obe cyst is present. The spleen, pancreas, left adrenal gland, and kidneys are within normal limits. There is a 2.3 cm right adrenal nodule, indeterminate based on Hounsfield units. There are atheroscle rotic calcifications of the aorta. There are multiple mildly enlarged periaortic/retroperitoneal lymp h nodes, as well as enlarged nodes along the common iliac chains.. No bowel obstruction or bowel wall thickening. There is no evidence to suggest acute appendicitis. Images through the pelvis were performed. Urinary bladder unremarkable. Patient is post hysterectomy. No ascites. Impression: Multiple subcentimeter pulmonary nodules at the lung bases are suspicious for pulmonary metastatic di sease. Consider dedicated chest CT to more completely evaluate the thorax. Mildly enlarged retroperitoneal and common iliac chain lymph nodes, suspicious for kathrin metastatic d isease. 2.3 cm indeterminate right adrenal nodule. MR should be considered to evaluate for adenoma versus oth er lesion. Comparison with any prior exams from outside institutions would be useful to assess for chronicity an d/or interval change of the above findings. Mild intrahepatic biliary dilatation, presumably related to prior cholecystectomy. Reviewed, dictated and finalized at [facility]. Impression: Multiple subcentimeter pulmonary nodules at the lung bases are suspicious for p ulmonary metastatic disease. Consider dedicated chest CT to more completely venancio luate the thorax. Mildly enlarged retroperitoneal and common iliac chain lymph nodes, suspicious for kathrin metastatic disease. 2.3 cm indeterminate right adrenal nodule. MR should be considered to evaluate for adenoma versus other lesion. Comparison with any prior exams from outside institutions would be useful to as sess for chronicity and/or interval change of the above findings. Mild intrahepatic biliary dilatation, presumably related to prior cholecystecto my.
[2023-06-14 07:54] LABS: Estimated Glomerular Filt Rate 55
== END 2023-06-14 07:18 | disposition home or self-care (01) ==
PROVIDERS: PCP Family Medicine; Visit Provider Obstetrics & Gynecology
DX: C54.1 Malignant neoplasm of endometrium (principal); R91.8 Other nonspecific abnormal finding of lung field
CPT/HCPCS: 74177; Q9967